=== PATIENT | female | born 1965 | race Caucasian/White ===

== ENCOUNTER 2017-10-03 19:14 | Observation (INO) | payer BC, OTHER ==
[2017-10-03] MEDS: ASPIRIN 81 MG TAB PO (22:12)
[2017-10-03] MEDS: NITROGLYCERIN 2% 1 GM OINT PKT TD (22:13)
[2017-10-03 22:19] LABS: ADD MAN DIFF? NO
[2017-10-03 22:21] LABS: BASOPHIL # 0.1 10^3/ul (0.0-0.1); BASOPHILS % 0.7 % (0.0-2.0); EOSINOPHILS # 0.1 10^3/ul (0.0-0.5); EOSINOPHILS % 1.7 % (0.0-7.0); HEMATOCRIT 40.2 % (37.0-47.0); HEMOGLOBIN 13.6 g/dl (12.0-16.0); LYMPHOCYTES # 2.3 10^3/ul (0.8-2.9); LYMPHOCYTES % 28.5 % (15.0-51.0); MEAN CORPUSCULAR HEMOGLOBIN 32.2 pg (29.0-33.0); MEAN CORPUSCULAR HGB CONC 33.8 g/dl (32.0-37.0); MEAN PLATELET VOLUME 9.6 fl (7.4-10.4); MONOCYTE # 0.7 10^3/ul (0.3-0.9); MONOCYTES % 8.8 % (0.0-11.0); NEUTROPHIL # 4.9 10^3/ul (1.6-7.5); NEUTROPHILS % 59.9 % (39.0-77.0); PLATELET COUNT 281 10^3/UL (140-415); RED BLOOD COUNT 4.23 10^6/ul (4.20-5.40); RED CELL DISTRIBUTION WIDTH 11.4 % (11.5-14.5)
[2017-10-03 22:21] LABS: WHITE BLOOD COUNT 8.2 10^3/ul (4.8-10.8)
[2017-10-03 22:39] LABS: ANION GAP 16 (8-16); BLOOD UREA NITROGEN 14 mg/dl (7-20); CALCIUM 10.2 mg/dl (8.4-10.2); CARBON DIOXIDE 26 mmol/L (21-31); CHLORIDE 103 mmol/L (97-110); CREATININE 0.78 mg/dl (0.44-1.00); GLUCOSE 94 mg/dl (70-220); MAGNESIUM 1.9 mg/dl (1.7-2.5); POTASSIUM 4.1 mmol/L (3.5-5.1); SODIUM 141 mmol/L (135-144)
[2017-10-03 22:51] LABS: TROPONIN-I 0.019 ng/ml (0.000-0.120)
[2017-10-03 22:54] LABS: FREE T4 (FREE THYROXINE) 0.95 ng/dl (0.64-1.79)
[2017-10-03] MEDS ORDERED: ONDANSETRON 4 MG INJ IV (23:30)
[2017-10-03] MEDS ORDERED: ACETAMINOPHEN 325 MG TAB PO (23:30)
[2017-10-04] MEDS ORDERED: morphine 2 MG INJ IV (02:30)
[2017-10-04 03:25] LABS: ADD MAN DIFF? NO
[2017-10-04 03:28] LABS: WHITE BLOOD COUNT 6.5 10^3/ul (4.8-10.8)
[2017-10-04 03:28] LABS: BASOPHIL # 0.1 10^3/ul (0.0-0.1); BASOPHILS % 0.9 % (0.0-2.0); EOSINOPHILS # 0.2 10^3/ul (0.0-0.5); EOSINOPHILS % 3.1 % (0.0-7.0); HEMATOCRIT 34.6 % (37.0-47.0); HEMOGLOBIN 11.7 g/dl (12.0-16.0); LYMPHOCYTES # 2.7 10^3/ul (0.8-2.9); MEAN CORPUSCULAR HEMOGLOBIN 32.1 pg (29.0-33.0); MEAN CORPUSCULAR HGB CONC 33.8 g/dl (32.0-37.0); MEAN CORPUSCULAR VOLUME 95.1 fl (82.0-101.0); MEAN PLATELET VOLUME 9.6 fl (7.4-10.4); MONOCYTE # 0.6 10^3/ul (0.3-0.9); MONOCYTES % 8.8 % (0.0-11.0); NEUTROPHILS % 45.7 % (39.0-77.0); PLATELET COUNT 245 10^3/UL (140-415); RED BLOOD COUNT 3.64 10^6/ul (4.20-5.40); RED CELL DISTRIBUTION WIDTH 11.5 % (11.5-14.5)
[2017-10-04 03:50] LABS: CREATINE KINASE 62 IU/L (23-200)
[2017-10-04 03:53] LABS: ALANINE AMINOTRANSFERASE 22 IU/L (13-69); ALBUMIN 3.6 g/dl (3.3-4.9); ALBUMIN/GLOBULIN RATIO 1.33; ALKALINE PHOSPHATASE 71 IU/L (42-121); ANION GAP 11 (8-16); ASPARTATE AMINO TRANSFERASE 26 IU/L (15-46); BILIRUBIN,INDIRECT 0.4 mg/dl (0-1.1); BILIRUBIN,TOTAL 0.4 mg/dl (0.2-1.3); BLOOD UREA NITROGEN 13 mg/dl (7-20); CALCIUM 9.1 mg/dl (8.4-10.2); CARBON DIOXIDE 27 mmol/L (21-31); CHLORIDE 106 mmol/L (97-110); CREATININE 0.69 mg/dl (0.44-1.00); GLUCOSE 120 mg/dl (70-220); PHOSPHORUS 3.7 mg/dl (2.5-4.9); POTASSIUM 3.5 mmol/L (3.5-5.1); SODIUM 140 mmol/L (135-144); TOTAL PROTEIN 6.3 g/dl (6.1-8.1)
[2017-10-04 04:05] LABS: CK INDEX 1.1; CK-MB 0.66 ng/ml (0.0-2.4); TROPONIN-I 0.017 ng/ml (0.000-0.120)
[2017-10-04 04:16] LABS: CHOL/HDL RATIO 2.3 RATIO; CHOLESTEROL 197 mg/dl (100-200); HDL CHOLESTEROL 84 mg/dl (37-92); LDL CHOLESTEROL,CALCULATED 101 mg/dl; TRIGLYCERIDES 59 mg/dl (0-149)
[2017-10-04 04:24] LABS: HEMOGLOBIN A1C 5.1 % (0-5.9)
[2017-10-04 04:29] LABS: TROPONIN-I 0.016 ng/ml (0.000-0.120)
[2017-10-04] MEDS ORDERED: hydrALAzine 20 MG INJ IV (04:30)
[2017-10-04] MEDS ORDERED: NITROGLYCERIN (SL) 0.4 MG TAB SL (04:30)
[2017-10-04] MEDS ORDERED: NACL 0.9% 3 ML SYG IV (04:30)
[2017-10-04] MEDS ORDERED: ALBUTEROL/IPRATROPIUM (NEB) 3 ML AMP HHN (04:30)
[2017-10-04] MEDS ORDERED: ONDANSETRON 4 MG INJ IV (04:30)
[2017-10-04] MEDS: ACETAMINOPHEN 325 MG TAB PO (06:04)
[2017-10-04] MEDS: ASPIRIN (EC) 81 MG TAB PO (08:57)
[2017-10-04] MEDS: ENOXAPARIN 40 MG/0.4 ML SYG SC (08:57)
[2017-10-04] MEDS: METOPROLOL 25 MG TAB PO (09:00)
[2017-10-04 10:30] LABS: CREATINE KINASE 57 IU/L (23-200)
[2017-10-04 10:41] LABS: CK INDEX 0.9; CK-MB 0.51 ng/ml (0.0-2.4)
[2017-10-04 10:42] LABS: TROPONIN-I < 0.012 ng/ml (0.000-0.120)
[2017-10-04 11:10] LABS: T3 UPTAKE 36.2 % (23.5-40.5); T4 (THYROXINE) 6.9 ug/dl (5.5-11.0)
== END 2017-10-04 17:55 | disposition home or self-care (01) ==
LOC: MS3 23:05 → E/R 19:14
DX: R00.2 Palpitations (principal); F41.9 Anxiety disorder, unspecified; I10 Essential (primary) hypertension; E78.00 Pure hypercholesterolemia, unspecified; F17.200 Nicotine dependence, unspecified, uncomplicated; Z82.49 Family history of ischemic heart disease and other diseases of the circulatory system
CPT/HCPCS: 36415; 71045; 80048; 80053; 80061; 82550; 82553; 83036; 83735; 84100; 84436; 84439; 84443; 84479; 84484; 85025; 93005; 93306; 99285-25